=== PATIENT | male | born 1990 | race Two or more races ===

== ENCOUNTER 2019-03-06 18:30 | Emergency (ER) | payer SELFPAY ==
[2019-03-06 19:27] LABS: ANION GAP 13.3; CHLORIDE,CL 103 mmol/L (101-111); SODIUM,NA 137 mmol/L (135-145)
[2019-03-06] MEDS ORDERED: Butorphanol 2 MG/ML SDV IVPUSH ONE (19:55)
--- NOTE | 2019-03-06 19:59 | EDM.PDOC ---
ED HPI GENERAL MEDICAL PROBLEM - General Chief Complaint: Chest Pain Stated Complaint: [facility] Time Seen by Provider: 03/06/19 18:45 Source of Information: Reports: Patient, EMS, EMS Notes Reviewed, Family, RN, RN Notes Reviewed History Limitations: Reports: No Limitations - History of Present Illness INITIAL COMMENTS - FREE TEXT/NARRATIVE: Patient to ER per [facility] with complaint of sudden onset neck and head pain which he rates a 7/10. Patient states he had just gotten off the treadmill at the gym , had ran for 30 minutes when his head and neck again to throb. Patient states when he was having the pain he began to have some chest pains as well. States the chest pains were sharp and occurred when he moved. Patient states these chest pains have resolved but continues to have head and neck pain. Patient states he has had some nasal congestion recently, but denies any other recent illness. Denies fever, chills, N/V/D. Patient denies any previous health problems, denies taking any medications on a daily basis. Patient denies frequent headaches, and states he's never had a headache like this before. Patient states he exercises 4 times a week at the gym. Onset: Today, Sudden Duration: Constant, Getting Worse Location: Reports: Head Quality: Reports: Stabbing, Throbbing Severity: Moderate Improves with: Reports: None Worsens with: Reports: None Associated Symptoms: Reports: Chest Pain Posterior Neck Pain Score (Numeric/FACES): 6 - Related Data Allergies Allergy/AdvReac Type Severity Reaction Status Date / Time No Known Allergies Allergy Verified 03/06/19 18:38 Home Meds: Home Meds . [No Known Home Meds] 03/06/19 [History] Past Medical History - Past Health History Medical/Surgical History: Denies Medical/Surgical History Social & Family History - Tobacco Use Smoking Status *Q: Current Every Day Smoker Years of Tobacco use: 7 Packs/Tins Daily: 0.2 - Caffeine Use Caffeine Use: Reports: Energy Drinks Caffeine Use Comment: states he takes a pre-workout energy drink. - Recreational Drug Use Recreational Drug Use: No ED ROS GENERAL - Review of Systems Review Of Systems: Comprehensive ROS is negative, except as noted in HPI. - Physical Exam Exam: See Below Exam Limited By: No Limitations General Appearance: Alert, WD/WN, Mild Distress Eye Exam: Bilateral Eye: EOMI, Normal Inspection, PERRL (4 brisk), Other (light sensitivity) Ears: Normal External Exam, Hearing Grossly Normal Nose: Normal Inspection, Normal Mucosa, No Blood Throat/Mouth: Normal Inspection, Normal Lips, Normal Teeth, Normal Gums, Normal Oropharynx, Normal Voice, No Airway Compromise Head Exam: Atraumatic, Normocephalic, Other (Headache) Neck: Tender Lateral, Tender Midline Respiratory/Chest: No Respiratory Distress, Lungs Clear, Normal Breath Sounds, No Accessory Muscle Use, Chest Non-Tender Cardiovascular: Normal Peripheral Pulses, Regular Rate, Rhythm, No Edema, No Gallop, No JVD, No Murmur, No Rub GI/Abdominal: Normal Bowel Sounds, Soft, Non-Tender, No Organomegaly, No Distention, No Abnormal Bruit, No Mass (Male) Exam: Deferred Rectal (Males) Exam: Deferred Neuro Exam (Abbreviated): Alert, Oriented, CN II-XII Intact, Normal Cognition, Normal Gait, Normal Reflexes, No Motor/Sensory Deficits Back Exam: Normal Inspection, Full Range of Motion, NT Extremities: Normal Inspection, Normal Range of Motion, Non-Tender, No Pedal Edema, Normal Capillary Refill Psychiatric: Normal Affect, Normal Mood Skin Exam: Warm, Dry, Intact, Normal Color, No Rash Course - Vital Signs Last Recorded V/S: Last Vital Signs Temp 98.1 F 03/06/19 18:35 Pulse 59 L 03/06/19 18:35 Resp 21 H 03/06/19 18:35 BP 156/106 H 03/06/19 18:35 Pulse Ox 100 03/06/19 18:35 - Orders/Labs/Meds Orders: Active Orders 24 hr Category Date Time Status Cardiac Monitoring [RC] . DIRECTED Care 03/06/19 18:42 Active Cervical Spine wo Cont [CT] Urgent Exams 03/06/19 19:39 Ordered Head wo Cont [CT] Stat Exams 03/06/19 19:38 Ordered UA W/MICROSCOPIC [URIN] Stat Lab 03/06/19 18:42 Ordered Sodium Chloride 0.9% [Normal Saline] 1,000 ml Med 03/06/19 21:37 Active IV .BOLUS Medication Orders Sodium Chloride (Normal Saline) 1,000 mls @ 999 mls/hr IV .BOLUS ONE Stop: 03/06/19 22:37 Labs: Laboratory Tests 03/06/19 03/06/19 03/06/19 Range/Units 18:56 18:56 18:56 WBC 6.1 (5.0-10.0) 10^3/uL RBC 4.65 (4.6-6.2) 10^6/uL Hgb 13.7 L (14.0-18.0) g/dL Hct 40.3 (40.0-54.0) % MCV 86.7 (80-100) fL MCH 29.5 (27.0-34.0) pg MCHC 34.0 (33.0-35.0) g/dL Plt Count 237 (150-450) 10^3/uL Neut % (Auto) 63.0 (42.2-75.2) % Lymph % (Auto) 29.6 (20.5-50.1) % [place] % (Auto) 6.1 (2-8) % Eos % (Auto) 1.0 (1.0-3.0) % Baso % (Auto) 0.3 (0.0-1.0) % PT 10.4 (9.0-12.0) SEC INR 1.0 (0.9-1.2) D-Dimer, Quantitative (0-400) ng/mL Sodium 137 (135-145) mmol/L Potassium 3.3 L (3.6-5.0) mmol/L Chloride 103 (101-111) mmol/L Carbon Dioxide 24.0 (21.0-31.0) mmol/L Anion Gap 13.3 BUN 13 (7-18) mg/dL Creatinine 0.9 (0.6-1.3) mg/dL Est Cr Clr Drug Dosing 125.05 mL/min Estimated GFR (MDRD) > 60 BUN/Creatinine Ratio 14.44 Glucose 108 H (74-105) mg/dL Calcium 9.1 (8.4-10.2) mg/dl Magnesium 1.8 (1.8-2.5) mg/dL Total Bilirubin 1.0 (0.2-1.0) mg/dL AST 29 (10-42) IU/L ALT 31 (10-60) IU/L Alkaline Phosphatase 65 (42-121) IU/L CK-MB (CK-2) (0.4-4.7) ng/mL Troponin I < 0.02 (0.00-0.02) ng/ml B-Natriuretic Peptide 30 (0-100) pg/ml Total Protein 8.1 (6.7-8.2) g/dl Albumin 4.4 (3.2-5.5) g/dl Globulin 3.7 Albumin/Globulin Ratio 1.19 Amylase 49 (28-100) U/L 03/06/19 03/06/19 Range/Units 18:56 18:56 WBC (5.0-10.0) 10^3/uL RBC (4.6-6.2) 10^6/uL Hgb (14.0-18.0) g/dL Hct (40.0-54.0) % MCV (80-100) fL MCH (27.0-34.0) pg MCHC (33.0-35.0) g/dL Plt Count (150-450) 10^3/uL Neut % (Auto) (42.2-75.2) % Lymph % (Auto) (20.5-50.1) % [place] % (Auto) (2-8) % Eos % (Auto) (1.0-3.0) % Baso % (Auto) (0.0-1.0) % PT (9.0-12.0) SEC INR (0.9-1.2) D-Dimer, Quantitative 127 (0-400) ng/mL Sodium (135-145) mmol/L Potassium (3.6-5.0) mmol/L Chloride (101-111) mmol/L Carbon Dioxide (21.0-31.0) mmol/L Anion Gap BUN (7-18) mg/dL Creatinine (0.6-1.3) mg/dL Est Cr Clr Drug Dosing mL/min Estimated GFR (MDRD) BUN/Creatinine Ratio Glucose (74-105) mg/dL Calcium (8.4-10.2) mg/dl Magnesium (1.8-2.5) mg/dL Total Bilirubin (0.2-1.0) mg/dL AST (10-42) IU/L ALT (10-60) IU/L Alkaline Phosphatase (42-121) IU/L CK-MB (CK-2) 3.70 (0.4-4.7) ng/mL Troponin I (0.00-0.02) ng/ml B-Natriuretic Peptide (0-100) pg/ml Total Protein (6.7-8.2) g/dl Albumin (3.2-5.5) g/dl Globulin Albumin/Globulin Ratio Amylase (28-100) U/L Meds: Medications Generic Name Dose Route Start Last Admin Trade Name Glennq PRN Reason Stop Dose Admin Sodium Chloride 1,000 mls @ 999 mls/hr 03/06/19 21:37 Normal Saline IV 03/06/19 22:37 .BOLUS ONE Discontinued Medications Generic Name Dose Route Start Last Admin Trade Name Freq PRN Reason Stop Dose Admin Acetaminophen/Butalbital/Caffeine 2 tab 03/06/19 21:39 Fioricet 325-50-40 Mg PO 03/06/19 21:40 ONETIME ONE Butorphanol Tartrate 2 mg 03/06/19 19:55 03/06/19 20:26 Stadol IVPUSH 03/06/19 19:56 2 mg ONETIME ONE Administration Hydromorphone HCl 0.5 mg 03/06/19 21:03 03/06/19 21:09 Dilaudid IVPUSH 03/06/19 21:04 0.5 mg ONETIME ONE Administration Metoclopramide HCl 10 mg 03/06/19 21:39 Reglan IVPUSH 03/06/19 21:40 ONETIME ONE - Radiology Interpretation Free Text/Narrative:: Head CT wo contrast: FINDINGS: Brain: Normal. No hemorrhage. Unremarkable white matter. No mass effect. Ventricles: Normal. No ventriculomegaly. Bones/joints: Unremarkable. No acute fracture. Sinuses: Visualized sinuses are unremarkable. No fluid levels. Mastoid air cells: Visualized mastoid air cells are well aerated. Soft tissues: Unremarkable. IMPRESSION: 1. No acute intracranial abnormality. 2. Unremarkable non-contrast CT head. No intracranial hemorrhage. No mass or hydrocephaly. No evidence of cerebral edema. Thank you for allowing us to participate in the care of your patient. Dictated and Authenticated by: Chito Badillo MD 03/06/2019 9:19 PM Central Time ([place] & [place]) CSpine CT wo contrast: FINDINGS: Vertebrae: No acute fracture. Normal alignment. C2-C3: No disc herniation. No spinal canal stenosis. No neural foraminal narrowing. C3-C4: No disc herniation. No spinal canal stenosis. No neural foraminal narrowing. C4-C5: No disc herniation. No spinal canal stenosis. No neural foraminal narrowing. C5-C6: No disc herniation. No spinal canal stenosis. No neural foraminal narrowing. C6-C7: No disc herniation. No spinal canal stenosis. No neural foraminal narrowing. C7-T1: No disc herniation. No spinal canal stenosis. No neural foraminal narrowing. Soft tissues: Unremarkable. Sinuses: Chronic right maxillary sinus change with mucoperiosteal thickening. Lungs: Lung apices are normal. IMPRESSION: 1. No cervical spine fracture or malalignment. 2. No evidence of disc bulge or herniation by noncontrast CT. No spinal stenosis. 3. Cervical soft tissues are grossly normal. 4. Right maxillary sinus mucoperiosteal thickening. Thank you for allowing us to participate in the care of your patient. Dictated and Authenticated by: Chito Badillo MD 03/06/2019 9:21 PM Central Time ([place] & [place]) See rad report - Re-Assessments/Exams Free Text/Narrative Re-Assessment/Exam: 03/06/19 21:47 Discussed patient case with Dr. Vargas at [facility] who agreed to accept the patient for transfer. He requests the patient receive Fiorecet 2 tabs and Reglan 10mg prior to transfer. Departure - Departure Time of Disposition: 21:48 Disposition: DC/Tfer to Acute Hospital 02 Condition: Fair Clinical Impression: [place] headache - Discharge Information *PRESCRIPTION DRUG MONITORING PROGRAM REVIEWED*: No *COPY OF PRESCRIPTION DRUG MONITORING REPORT IN PATIENT ARUN: No Referrals: PCP,Unobtain [Primary Care Provider] - Forms: ED Department Discharge, Interfacility Transfer [facility] Sepsis Event Note - Evaluation Sepsis Screening Result: No Definite Risk - Focused Exam Vital Signs: Vital Signs Temp Pulse Resp BP Pulse Ox 03/06/19 18:35 98.1 F 59 L 21 H 156/106 H 100 Date Exam was Performed: 03/06/19 Time Exam was Performed: 21:47 - My Orders Last 24 Hours: My Active Orders 03/06/19 19:38 Head wo Cont [CT] Stat 03/06/19 19:39 Cervical Spine wo Cont [CT] Urgent 03/06/19 21:37 Sodium Chloride 0.9% [Normal Saline] 1,000 ml IV .BOLUS - Assessment/Plan Last 24 Hours: My Active Orders 03/06/19 19:38 Head wo Cont [CT] Stat 03/06/19 19:39 Cervical Spine wo Cont [CT] Urgent 03/06/19 21:37 Sodium Chloride 0.9% [Normal Saline] 1,000 ml IV .BOLUS
[2019-03-06] MEDS ORDERED: HYDROmorphone 0.5 MG/0.5 ML Syringe IVPUSH ONE (21:03)
[2019-03-06] MEDS ORDERED: Sodium Chloride 0.9% 1,000 ML IV ONE (21:37)
[2019-03-06] MEDS ORDERED: Acetaminophen/Butalbital/Caffeine 325-50-40 MG Tab PO ONE (21:39)
[2019-03-06] MEDS ORDERED: Metoclopramide 10 MG/2 ML SDV IVPUSH ONE (21:39)
[2019-03-06] MEDS ORDERED: Ketorolac 30 MG/ML SDV IVPUSH ONE (21:55)
== END 2019-03-06 22:17 ==
LOC: DL.ED 18:30
DX: G44.53 Primary thunderclap headache (principal); M54.2 Cervicalgia; F17.210 Nicotine dependence, cigarettes, uncomplicated
CPT/HCPCS: 36415; 70450; 72125; 80053; 82150; 82553; 83735; 83880; 84484; 85025; 85379; 85610; 96374; 96375; 99284; 99285; J0595; J1170; J2765; J7030